=== PATIENT | female | born 1930 | race Caucasian/White ===

== ENCOUNTER 2017-08-30 10:04 | Emergency (ER) | payer MEDICARE, BC ==
--- NOTE | 2017-08-30 11:10 | EDM.PDOC ---
ED HPI GENERAL MEDICAL PROBLEM - General Chief Complaint: General Stated Complaint: DIFFERENT BLOOD PRESSURE MEDS Time Seen by Provider: 08/30/17 10:51 Source of Information: Reports: Patient, RN Notes Reviewed History Limitations: Reports: No Limitations - History of Present Illness INITIAL COMMENTS - FREE TEXT/NARRATIVE: 87-year-old female presents emergency department today point of not feeling right, feels her heart rate and blood pressure off, she has had some recent medication change was stopped from metoprolol switched to propranolol she has been on that medication for about 2 weeks she also complained of some arm pain this morning last about 15 minutes now completely resolved, does have nausea but that is not a new symptom denies any chest pain or shortness of breath - Related Data Allergies Allergy/AdvReac Type Severity Reaction Status Date / Time cephalexin Allergy Rash Verified 08/30/17 10:41 clindamycin Allergy Hives Verified 08/30/17 10:41 niacin Allergy Rash Verified 08/30/17 10:41 Penicillins Allergy Anaphylactic Verified 08/30/17 10:41 Shock atorvastatin [From Lipitor] AdvReac Muscle Verified 08/30/17 10:41 Aches erythromycin base AdvReac Hypertensio Verified 08/30/17 10:41 n pravastatin AdvReac Muscle Verified 08/30/17 10:41 Aches rosuvastatin [From Crestor] AdvReac Muscle Verified 08/30/17 10:41 Aches Home Meds: Home Meds Aspirin [Ecotrin] 81 mg PO DAILY 08/30/17 [History] Cholecalciferol (Vitamin D3) [Vitamin D3] 400 unit PO DAILY 08/30/17 [History] Cyanocobalamin (Vitamin B-12) [Vitamin B-12] 500 mcg PO DAILY 08/30/17 [History] Levothyroxine 75 mcg PO ACBREAKFAST 08/30/17 [History] Lisinopril [Zestril] 10 mg PO BID 08/30/17 [History] Multivitamin [Multi-Vitamin Daily] 1 each PO DAILY 08/30/17 [History] Propranolol [Inderal LA] 60 mg PO DAILY 08/30/17 [History] Simvastatin [Zocor] 10 mg PO BEDTIME 08/30/17 [History] metFORMIN HCl [Metformin HCl ER] 1,000 mg PO BID 08/30/17 [History] Past Medical History HEENT History: Reports: Cataract, Other (See Below) Other HEENT History: teeth grinding Cardiovascular History: Reports: Heart Murmur, High Cholesterol, Hypertension, Other (See Below) Other Cardiovascular History: palpitations [employer] History: Reports: Other (See Below) Other OB/BYN History: mammogram 2009 Musculoskeletal History: Reports: Osteoarthritis Neurological History: Reports: Vertigo Endocrine/Metabolic History: Reports: Diabetes, Type II, Hypothyroidism - Past Surgical History HEENT Surgical History: Reports: Cataract Surgery GI Surgical History: Reports: Appendectomy, Colonoscopy Female Surgical History: Reports: Breast Biopsy, Other (See Below) Other Female Surgeries/Procedures: bladder repair Musculoskeletal Surgical History: Reports: Other (See Below) Other Musculoskeletal Surgeries/Procedures:: bone desity 2009 Social & Family History - Tobacco Use Smoking Status *Q: Never Smoker - Recreational Drug Use Recreational Drug Use: No ED ROS GENERAL - Review of Systems Review Of Systems: See Below Constitutional: Reports: No Symptoms HEENT: Reports: No Symptoms Respiratory: Reports: No Symptoms Cardiovascular: Reports: No Symptoms GI/Abdominal: Reports: Nausea : Reports: No Symptoms Musculoskeletal: Reports: Arm Pain Skin: Reports: No Symptoms Neurological: Reports: No Symptoms ED EXAM, GENERAL - Physical Exam Exam: See Below Exam Limited By: No Limitations General Appearance: Alert, WD/WN, No Apparent Distress Head: Atraumatic, Normocephalic Neck: Normal Inspection, Supple, Non-Tender, Full Range of Motion Respiratory/Chest: No Respiratory Distress, Lungs Clear, Normal Breath Sounds, No Accessory Muscle Use Cardiovascular: Regular Rate, Rhythm, No Murmur GI/Abdominal: Soft, Non-Tender Course - Vital Signs Last Recorded V/S: Last Vital Signs Temp 98.1 F 08/30/17 10:42 Pulse 67 08/30/17 11:23 Resp 16 08/30/17 11:23 BP 137/81 08/30/17 11:23 Pulse Ox 93 L 08/30/17 11:23 - Orders/Labs/Meds Labs: Laboratory Tests 08/30/17 08/30/17 Range/Units 11:19 11:19 WBC 4.9 (4.5-11.0) K/uL RBC 4.29 (3.30-5.50) M/uL Hgb 13.0 (12.0-15.0) g/dL Hct 38.6 (36.0-48.0) % MCV 90 (80-98) fL MCH 30 (27-31) pg MCHC 34 (32-36) % Plt Count 224 (150-400) K/uL Neut % (Auto) 53 (36-66) % Lymph % (Auto) 37 (24-44) % [place] % (Auto) 8 H (2-6) % Eos % (Auto) 2 (2-4) % Baso % (Auto) 0 (0-1) % Sodium 139 L (140-148) mmol/L Potassium 4.6 (3.6-5.2) mmol/L Chloride 102 (100-108) mmol/L Carbon Dioxide 26 (21-32) mmol/L Anion Gap 15.6 H (5.0-14.0) mmol/L BUN 19 H (7-18) mg/dL Creatinine 1.0 (0.6-1.0) mg/dL Est Cr Clr Drug Dosing 31.04 mL/min Estimated GFR (MDRD) 53 L (>60) Glucose 131 H (74-106) mg/dL Calcium 9.1 (8.5-10.1) mg/dL Total Bilirubin 0.5 (0.2-1.0) mg/dL AST 17 (15-37) U/L ALT 27 (12-78) U/L Alkaline Phosphatase 52 (46-116) U/L CK-MB (CK-2) 0.6 (0-3.6) mg/mL Troponin I < 0.017 (0.000-0.056) ng/mL Total Protein 7.5 (6.4-8.2) g/dL Albumin 3.7 (3.4-5.0) g/dL Globulin 3.8 H (2.3-3.5) g/dL Albumin/Globulin Ratio 1.0 L (1.2-2.2) Departure - Departure Time of Disposition: 12:01 Disposition: Home, Self-Care 01 Condition: Good Clinical Impression: Palpitations - Discharge Information Referrals: Ger Lott MD [Primary Care Provider] - Forms: ED Department Discharge Additional Instructions: Please followup with your primary care provider in 5-7 days if not better, please call return to the emergency department with worsening of symptoms. - Assessment/Plan Plan: Assessment Acuity = acute Site and laterality = palpitations comp came the patient with recent history of medication change on propranolol Etiology = unclear etiology Manifestations = none Location of injury = Home Lab values = EKG demonstrates a sinus rhythm with a rate around [address] changes or depressions CBC CMP troponin all within normal limits Plan I did review lab work EKG results with her she remained asymptomatic while in the emergency department she is to follow-up with primary care in the next 5-7 days for reevaluation Patient was in agreement with the plan all questions were answered, they were instructed to return to the emergency department or call for worsening symptoms. This note was dictated using [employer] voice recognition software please call with any questions.
[2017-08-30 11:42] VITALS: BP 137/81
== END 2017-08-30 12:06 | disposition home or self-care (01) ==
LOC: JP.ED 10:04
DX: R00.2 Palpitations (principal); E11.9 Type 2 diabetes mellitus without complications; I10 Essential (primary) hypertension; E78.00 Pure hypercholesterolemia, unspecified; Z88.8 Allergy status to other drugs, medicaments and biological substances; Z88.0 Allergy status to penicillin; Z88.1 Allergy status to other antibiotic agents; Z79.82 Long term (current) use of aspirin; Z79.899 Other long term (current) drug therapy; Z98.890 Other specified postprocedural states; Z98.49 Cataract extraction status, unspecified eye
CPT/HCPCS: 36415; 80053; 82553; 84484; 85025; 93005; 93010; 99284; 99285-25